=== PATIENT | male | born 1965 | race Caucasian/White ===

== ENCOUNTER 2023-08-06 10:54 | Emergency (ER) | payer BC, SELFPAY ==
[2023-08-06] VITALS (43 sets, daily range): BP systolic 124–164; BP diastolic 74–124; PULSE 0–115; RESP 5–29; TEMP 36.6; O2SAT 95–100; BMI 36.6
--- NOTE | 2023-08-06 11:07 | ECG_ITS ---
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
--- NOTE | 2023-08-06 11:08 | CT_ITS ---
The [address] [address] Patient Name: CK MUNOZ MRN: [id number] date: 1965 Sex: M Assigned Patient Location: ER Current Patient Location: ER Accession/Order Number: [id number] Exam Date: 08/06/2023 11:40 Report Date: 08/06/2023 12:02 At the request of: KATIE CAMPOS Procedure: CT angio chest EXAMINATION: CT angio chest HISTORY: severe chest pain COMPARISON: No relevant comparison available. TECHNIQUE: Multi-planar CT images were created with IV contrast. Axial, Coronal, and Sagittal images. Dose reduction techniques were achieved by using automated exposure control and/or adjustment of mA and/or kV according to patient size and/or use of iterative reconstruction technique. FINDINGS: LUNGS: Mild dependent opacities, atelectasis is favored PLEURA: No mass, effusion, or pneumothorax. VASCULATURE: Normal postcontrast opacification of the central pulmonary arterial tree with no filling defect to suggest a pulmonary embolus SINAN: No mass or adenopathy. MEDIASTINUM: No mass or adenopathy. CARDIAC: No enlargement, pericardial thickening, or significant calcification. AORTA: No aneurysm or dissection. CHEST WALL: No mass or axillary adenopathy. Small fibroid. Right thyroid nodule BONES: No bone lesion or fracture. LIMITED ABDOMEN: Diffuse hypoattenuation consistent with hepatic steatosis OTHER: Negative. CT/CT angio chest IMPRESSION: No central pulmonary thromboembolic disease Electronically authenticated by: MERCEDEZ MOODY Date: 08/06/2023 12:02
[2023-08-06] MEDS: ONDANSETRON PF 4 MG/2 ML VIAL IV (11:19)
[2023-08-06] MEDS: MORPHINE SULFATE 4 MG/ML VIAL IM (11:19)
[2023-08-06 11:34] LABS: Basophils Percent Auto 0.4 % (0.2-2.0); Eosinophils Absolute Auto 0.1 10^3/uL (0.0-0.7); Hematocrit 45.2 % (42.0-54.0); Hemoglobin 15.1 g/dL (14.0-18.0); Immature Granulocytes Abs Auto 0.03 10^3/uL (0.00-0.03); Immature Granulocytes Pct Auto 0.3 % (0.0-0.5); Lymphocytes Absolute Auto 2.8 10^3/uL (1.2-3.8); Mean Corpuscular HGB Conc 33.4 g/dL (29.9-35.2); Mean Corpuscular Hemoglobin 29.8 pg (25.9-34.0); Mean Corpuscular Volume 89.2 fL (80.0-94.0); Mean Platelet Volume 10.1 fL (9.5-13.5); Monocytes Absolute Auto 0.7 10^3/uL (0.3-0.8); Monocytes Percent Auto 7.8 % (1.7-12.0); Neutrophils Absolute Auto 5.3 10^3/uL (1.4-6.5); Neutrophils Percent Auto 59.5 % (43.0-75.0); Platelet Count 319 10^3/uL (150-450); Red Blood Count 5.07 10^6/uL (4.70-6.10); Red Cell Distribution Width 12.8 % (11.0-15.0); White Blood Count 8.9 10^3/uL (4.0-11.0)
[2023-08-06 11:48] LABS: Partial Thromboplastin Time 24.6 sec (22.3-36.2); Prothrombin Time 9.8 sec (9.0-11.6)
[2023-08-06 11:54] LABS: INR <0.93
[2023-08-06 11:55] LABS: Alanine Aminotransferase 43 U/L (16-63); Albumin Globulin Ratio 1.1; Albumin Level 3.9 g/dL (3.4-5.0); Alkaline Phosphatase 100 U/L (46-116); Anion Gap 16.1; Aspartate Amino Transferase 23 U/L (15-37); BUN Creatinine Ratio 15.7; Bilirubin Total 0.8 mg/dL (0.2-1.0); Calcium 9.3 mg/dL (8.5-10.1); Carbon Dioxide 23.4 mmol/L (21.0-32.0); Chloride 102 mmol/L (98-107); Estimated GFR (African America >60 (>=60); Estimated GFR (Non-African Ame 52 (>=60); Globulin 3.4 g/dL; Glucose 195 mg/dL (74-106); Potassium 4.5 mmol/L (3.5-5.1); Sodium 137 mmol/L (136-145); Total Protein 7.3 g/dL (6.4-8.2); Troponin I High Sensitivity <4.0 pg/mL (4.0-76.1)
--- NOTE | 2023-08-06 11:58 | ECG_ITS ---
The [facility] Test Date: 2023-08-06 Pat Name: CK MUNOZ Department: Room: - Gender: Male [employer]: : 1965 Requested By: 1860 Order Number: [id number] Reading MD: NOEMÍ ORTIZ Measurements Intervals [place] Rate: 70 P: 64 [place]: 190 QRS: 74 QRSD: 96 T: 47 QT: 388 QTc: 409 Interpretive Statements 1100 Sinus rhythm 1102 Sinus arrhythmia 9110 normal ECG Compared to ECG 08/06/2023 11:04:05 No significant changes Electronically Signed On 08-06-2023 22:58:50 EST by NOEMÍ ORTIZ
[2023-08-06] MEDS: HYDROMORPHONE HCL 0.5 MG/0.5 ML SYRINGE IV (12:12)
[2023-08-06] MEDS: FAMOTIDINE/PF 20 MG/2 ML VIAL IV (12:13)
--- NOTE | 2023-08-06 13:11 | ECG_ITS ---
The [facility] Test Date: 2023-08-06 Pat Name: CK MUNOZ Department: Room: - Gender: Male Launch[employer]: : 1965 Requested By: 1860 Order Number: [id number] Reading MD: NOEMÍ ORTIZ Measurements Intervals [place] Rate: 69 P: 73 [place]: 190 QRS: 85 QRSD: 100 T: 55 QT: 402 QTc: 421 Interpretive Statements 1100 Sinus rhythm [address]/T wave changes more pronounced, can't exclude inferolateral injury 9130 borderline ECG Compared to ECG 08/06/2023 11:58:23 No significant changes Electronically Signed On 08-06-2023 23:01:46 EST by NOEMÍ ORTIZ
[2023-08-06] MEDS: ASPIRIN 81 MG TAB.CHEW 324 MG PO (13:45)
[2023-08-06] MEDS: NITROGLYCERIN 0.4 MG BOTTLE 0.400000000000000022 MG SL (13:46)
[2023-08-06] MEDS: HEPARIN SODIUM (PORCINE) 5,000 UNIT/ML VIAL 4000 UNIT IV (14:11)
[2023-08-06] MEDS: HEPARIN SODIUM,PORCINE/D5W 25,000 UNIT/500 ML IV.SOLN 20 UNIT IV (14:12)
--- NOTE | 2023-08-06 14:12 | ECG_ITS ---
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 9130 borderline ECG Electronically Signed On 08-06-2023 23:02:26 EST by NOEMÍ ORTIZ
[2023-08-06 14:42] LABS: Troponin I High Sensitivity 262.9 pg/mL (4.0-76.1)
--- NOTE | 2023-08-06 15:06 | ED_ITS ---
HPI - Chest Pain General Chief Complaint: Chest Pain Stated Complaint: CHEST PAIN Time Seen by Provider: 08/06/23 11:05 Source: patient Mode of arrival: walk-in Limitations: no limitations History of Present Illness HPI narrative: 57-year-old male to the emergency department with chief complaint of chest pain. Patient reports that he has no known cardiac history. He has a history of diabetes on metformin and high blood pressure. He was working out today gym when he began to experience some chest discomfort. It is radiating to his back. He has never had this before. He reports her significant family history of cardiac disease. MD complaint: Reports chest pain Related Data Home Medications Medication Instructions Recorded Confirmed lisinopril 10 mg tablet mg 08/06/23 lisinopril 40 mg tablet 40 mg PO DAILY 08/06/23 08/06/23 metformin 500 mg tablet,extended 1,000 mg PO BID 08/06/23 08/06/23 release 24 hr Allergies Allergy/AdvReac Type Severity Reaction Status Date / Time No Known Drug Allergies Allergy Verified 08/06/23 11:02 Review of Systems ROS Status of ROS 10 or more systems reviewed and unremark able except as noted in history and below [facility] Social History Smoking status: Never smoker Exam Narrative Exam Narrative: VITALS: I have reviewed the triage vital signs. GENERAL: Well developed, well appearing adult male clutching chest. NEURO: Alert and oriented. Moves all extremities. Face is symmetric and expressive. EYES: PERRL. No scleral icterus or conjunctival injection. No discharge. HENT: Normocephalic, atraumatic. Hearing is grossly intact. Nares grossly patent and without discharge. Mucous membranes moist. NECK: No JVD. Patient moves neck without restriction. CARDIO: Rhythm regular. Normal rate. No murmur, rub, or gallop. Pulses equal bilaterally in the upper and lower extremity. No lower extremity edema. PULM: Lungs clear to auscultation in all [place]. No wheezes, rales, or rhonchi. No conversational dyspnea. No splinting, stridor, or accessory muscle use. GI/: Abdomen is soft and non-tender. Normoactive bowel sounds. EXTREMITIES: Symmetric muscle bulk. No joint swelling. No clubbing, cyanosis, or deformity. SKIN: Warm and dry. Normal turgor. No rash or lesions appreciated. PSYCH: Anxious Constitutional Vital Signs, click to edit/add: Last Vital Signs Temp 97.9 F 08/06/23 11:02 Pulse 80 08/06/23 14:50 Resp 11 L 08/06/23 14:50 BP 124/79 08/06/23 14:46 Pulse Ox 100 08/06/23 14:50 Course Vital Signs Vital signs: Vital Signs Temperature 97.9 F 08/06/23 11:02 Pulse Rate 87 08/06/23 11:02 Respiratory Rate 20 08/06/23 11:02 Blood Pressure 163/124 H 08/06/23 11:02 Pulse Oximetry 98 08/06/23 11:02 Temperature 97.9 F 08/06/23 11:02 Pulse Rate 80 08/06/23 14:50 Respiratory Rate 11 L 08/06/23 14:50 Blood Pressure 124/79 08/06/23 14:46 Pulse Oximetry 100 08/06/23 14:50 MDM - Chest Pain MDM Narrative Medical decision making narrative: 57-year-old male to the emergency department to light chest pain. Vital stable, the patient is afebrile. Cardiac workup was initiated.Morphine for his discomfort. We'll obtain a CTA chest. Initial EKG: Nonspecific ST changes. No ST elevation. Normal QTC CBC and chemistry are reviewed. Initial troponin is undetectable. Repeat EKG 1158: NSR, normal QTC. No dynamic changes. Will repeat a troponin and EKG. Repeat EKG was performed 1324: does have dynamic changes in V5 V6 and inferior leads. There is J-point elevation with a change in concavity of the ST segment. I called and discussed case with Dr. Coffey the on-call interventionalists at [facility]. After his personal review of the EKGs he agrees with the patient does not meet STEMI criteria at this time however it is concerning. He would like to maximize medical therapy and obtain a repeat troponin level. He recommended heparin drip, aspirin, metoprolol. Metoprolol was held due to bradycardia. Repeat EKG was performed and looks improved. He is now pain free. Troponin is now significantly elevated. Discussed again with Dr. Coffey and the patient will go immediately to the clinical laboratory aide at [facility]. Case discussed with hospitalist at [facility] for admission after cath. Medical Records Data Attestation: I reviewed the patient's medical records. Lab Data Attestation: I reviewed the patient's lab results. Labs: Lab Results 08/06/23 08/06/23 Range/Units 11:25 13:40 WBC 8.9 (4.0-11.0) 10^3/uL RBC 5.07 (4.70-6.10) 10^6/uL Hgb 15.1 (14.0-18.0) g/dL Hct 45.2 (42.0-54.0) % MCV 89.2 (80.0-94.0) fL MCH 29.8 (25.9-34.0) pg MCHC 33.4 (29.9-35.2) g/dL RDW 12.8 (11.0-15.0) % Plt Count 319 (150-450) 10^3/uL MPV 10.1 (9.5-13.5) fL Neut % (Auto) 59.5 (43.0-75.0) % Lymph % (Auto) 31.0 (20.5-60.0) % [place] % (Auto) 7.8 (1.7-12.0) % Eos % (Auto) 1.0 (0.9-7.0) % Baso % (Auto) 0.4 (0.2-2.0) % Neut # (Auto) 5.3 (1.4-6.5) 10^3/uL Lymph # (Auto) 2.8 (1.2-3.8) 10^3/uL [place] # (Auto) 0.7 (0.3-0.8) 10^3/uL Eos # (Auto) 0.1 (0.0-0.7) 10^3/uL Baso # (Auto) 0.0 (0.0-0.1) 10^3/uL Abs Immat Gran (auto) 0.03 (0.00-0.03) 10^3/uL Imm/Tot Granulo (auto) 0.3 (0.0-0.5) % PT 9.8 (9.0-11.6) sec INR <0.93 APTT 24.6 (22.3-36.2) sec Sodium 137 (136-145) mmol/L Potassium 4.5 (3.5-5.1) mmol/L Chloride 102 (98-107) mmol/L Carbon Dioxide 23.4 (21.0-32.0) mmol/L Anion Gap 16.1 BUN 22.0 H (7.0-18.0) mg/dL Creatinine 1.40 H (0.70-1.30) mg/dL Est GFR ( Amer) >60 (>=60) Est GFR (Non-Af Amer) 52 L (>=60) BUN/Creatinine Ratio 15.7 Glucose 195 H (74-106) mg/dL Calcium 9.3 (8.5-10.1) mg/dL Total Bilirubin 0.8 (0.2-1.0) mg/dL AST 23 (15-37) U/L ALT 43 (16-63) U/L Alkaline Phosphatase 100 (46-116) U/L Troponin I High Sens <4.0 L 262.9 H* (4.0-76.1) pg/mL Total Protein 7.3 (6.4-8.2) g/dL Albumin 3.9 (3.4-5.0) g/dL Globulin 3.4 g/dL Albumin/Globulin Ratio 1.1 Lipase 46.0 (16.0-77.0) U/L Imaging Data CT scan - chest: Attestation: I have reviewed the pertinent imaging results. Radiologist's impression: ITS Impressions Chest CTA 08/06/23 11:08 IMPRESSION: No central pulmonary thromboembolic disease Electronically authenticated by: MERCEDEZ MOODY Date: 08/06/2023 12:02 ECG Data Attestation: I personally reviewed and interpreted this ECG as follows: Heart Score History: Moderately Suspicious ECG: NS Repolarization Age: >45-<65 years Risk Factors: >3 Risk Factors/ HX of CAD:2 Troponin: <Normal Limit Total Heart Score Recommendations & Risks:: 5 Critical Care Time Critical Care Time Critical Care Time: Yes Total Critical Care Time: 35 Attestation: Critical Care Procedure Note Authorized and Performed by: Leonides Rodas DO Total critical care time: 35 min Due to a high probability of clinically significant, life threatening deterioration, the patient required my highest level of preparedness to intervene emergently and I personally spent this critical care time directly and personally managing the patient. This critical care time included obtaining a history; examining the patient; pulse oximetry; ordering and review of studies; arranging urgent treatment with development of a management plan; evaluation of patient's response to treatment; frequent reassessment; and, discussions with other providers. This critical care time was performed to assess and manage the high probability of imminent, life-threatening deterioration that could result in multi-organ failure. It was exclusive of separately billable procedures and treating other patients and teaching time. Please see MDM section and the rest of the note for further information on patient assessment and treatment. Discharge Plan Discharge Chief Complaint: Chest Pain Clinical Impression: ACS (acute coronary syndrome) Patient Disposition: [facility] Time of Disposition Decision: 15:10 Discharge Location: [facility] Discharge location: [facility] [place] Condition: Serious Mode of Transportation: EMS Prescriptions / Home Meds: No Action lisinopril 10 mg tablet lisinopril 40 mg tablet 40 mg PO DAILY metformin 500 mg tablet extended release 24 hr 1,000 mg PO BID Referrals: Physician,Non-Staff, MD [Primary Care Provider] - 1 week
== END 2023-08-06 15:42 | disposition short-term general hospital (02) ==
PROVIDERS: Emergency Provider Student in an Organized Health Care Education/Training Program
DX: I24.9 Acute ischemic heart disease, unspecified (principal); R07.9 Chest pain, unspecified; E11.9 Type 2 diabetes mellitus without complications; Z79.84 Long term (current) use of oral hypoglycemic drugs; I10 Essential (primary) hypertension
CPT/HCPCS: 36415; 71275; 80053; 83690; 84484; 85025; 85610; 85730; 93005; 96372; 96374; 96375; 99285; J1170; Q9967

== ENCOUNTER 2024-11-18 07:24 | Outpatient (RCR) | payer BC, SELFPAY | END 2024-12-23 13:36 | disposition home or self-care (01) | LOC: PT 07:24 | PROVIDERS: PCP Family Medicine; Visit Provider Family Medicine | DX: M54.2 Cervicalgia (principal); E11.9 Type 2 diabetes mellitus without complications; Z78.9 Other specified health status | CPT/HCPCS: 97010; 97012; 97014; 97110; 97140; 97162 ==